=== PATIENT | female | born 1975 | race African-American/Black ===

== ENCOUNTER 2021-03-06 13:12 | Emergency (ER) | payer MEDICAID ==
[~2021-03-06] VITALS: Ht 162.6 cm; Wt 73.0 kg
[2021-03-06] MEDS ORDERED: ACETAMINOPHEN 325MG TABLET PO ONE (14:15)
[2021-03-06 14:54] LABS: BASOPHILS % 0.8 % (0.0-2.0); EOSINOPHILS % 1.4 % (0.0-5.0); LYMPHOCYTES % 20.5 % (20.0-50.0); MEAN CORPUSCULAR HEMOGLOBIN 27.7 pg (28.0-32.0); MEAN PLATELET VOLUME 7.6 fl (7.4-10.4); MONOCYTES % 10.2 % (2.0-8.0); NEUTROPHILS % 67.1 % (40.0-76.0); PLATELET 386 x1000/uL (130-400); RED BLOOD CELL COUNT 5.06 mill/uL (4.2-5.4); RED CELL DISTRIBUTION WIDTH 14.4 % (11.6-14.6)
[2021-03-06 15:41] LABS: CHLORIDE 108 mEq/L (98-107)
[2021-03-06 15:45] LABS: ETHANOL BLOOD < 10 mg/dL
[2021-03-06 18:20] VITALS: BP 145/92
== END 2021-03-06 18:20 | disposition left against medical advice (07) ==
LOC: ER 13:12
DX: R07.9 Chest pain, unspecified (principal); F41.9 Anxiety disorder, unspecified; R03.0 Elevated blood-pressure reading, without diagnosis of hypertension
CPT/HCPCS: 36415; 71045; 80053; 80307; 80320; 80329; 83880; 84484; 85025; 99285; G0480